=== PATIENT | female | born 1995 | race Caucasian/White ===

== ENCOUNTER 2017-04-25 12:03 | Emergency (ER) | payer SELFPAY, BC | END 2017-04-25 17:43 | disposition left against medical advice (07) | LOC: FTE 12:03 | DX: Z53.21 Procedure and treatment not carried out due to patient leaving prior to being seen by health care provider (principal) | CPT/HCPCS: 93005 ==

== ENCOUNTER 2018-12-24 16:03 | Emergency (ER) | payer SELFPAY, MEDICAID | END 2018-12-24 17:17 | disposition home or self-care (01) | LOC: E/R 17:17 → FTE 16:03 | DX: O26.892 Other specified pregnancy related conditions, second trimester (principal); R00.2 Palpitations; Z3A.15 15 weeks gestation of pregnancy | CPT/HCPCS: 93005; 99283-25 ==